=== PATIENT | female | born 1990 | race Caucasian/White ===

== ENCOUNTER 2019-11-18 15:08 | Emergency (ER) | payer SELFPAY ==
[2019-11-18] MEDS ORDERED: Dexamethasone 4 mg/ml Vial ONE (15:42)
[2019-11-18] MEDS ORDERED: Ondansetron ODT 4 MG TAB ONE (15:42)
[2019-11-18] MEDS ORDERED: Acetaminophen 500 MG TAB ONE (15:42)
--- NOTE | 2019-11-18 15:46 | RAD ---
XR Chest Pa Lat STANDARD History: Sore throat with congestion Comparison: None. Findings: Lungs are clear. Radiopaque linear objects project over the chest wall bilaterally. Is not seen on the lateral radiograph and may reflect piercings. Impression: No acute intrathoracic abnormality.
== END 2019-11-18 16:03 | disposition home or self-care (01) ==
LOC: ERS 15:08
DX: J04.0 Acute laryngitis (principal); B34.9 Viral infection, unspecified; E78.5 Hyperlipidemia, unspecified; E78.00 Pure hypercholesterolemia, unspecified; F41.9 Anxiety disorder, unspecified; F31.9 Bipolar disorder, unspecified; Z79.899 Other long term (current) drug therapy
CPT/HCPCS: 71046; 93005; 94640; 96372; J1100; J7620; Q0162